=== PATIENT | female | born 1985 | race Two or more races ===

== ENCOUNTER 2024-12-19 00:05 | Emergency (ER) | payer MEDICAID ==
[~2024-12-19] VITALS: Ht 165.1 cm; Wt 78.9 kg
--- NOTE | 2024-12-19 00:25 | ED.PDOC ---
General HPI Comments 39-year-old female came to emergency room due to flank pains. Patient does have history of UTIs, states she has been experiencing right flank pain since yesterday, progressively worsening, nonradiating. Denies any urinary symptoms such as dysuria or hematuria, but complains of urinary urgency. Denies any history of kidney stones. Vital signs were stable on arrival. Chief Complaint: Flank Pain Time Seen by MD: 00:25 Reviewed notes: Nurses Notes Allergies: Coded Allergies: NO KNOWN ALLERGIES (Unverified , 12/19/24) Information Source: Patient Mode of Arrival: Ambulatory Severity: Moderate Inability to void: Mild Timing: Hours Duration: Since onset Has not urinated for: Minutes Prehospital treatment: None Onset: Spontaneous Symptoms: Urgency History of: UTI Location: (R) Flank associated signs and symptoms: Flank Pain, Back Pain, Urgency Past Medical History PAST MEDICAL HISTORY: HTN, UTI'S Surgical History: Denies all surgeries CONTENT ADMINISTRATOR History: Denies all CONTENT ADMINISTRATOR Hx Family History Family History: Reviewed,noncontributory to illness Social History Smoker: Non-Smoker Alcohol: Denies ETOH Use Drugs: Denies Drug Use Lives In: Home Constitutional: denies: chills, diaphoresis, fatigue, fever, malaise, sweats, weakness, others EENTM: denies: blurred vision, double vision, ear bleeding, ear discharge, ear drainage, ear pain, ear ringing, eye pain, eye redness, hearing loss, mouth pain, mouth swelling, nasal discharge, nose bleeding, nose congestion, nose pain, photophobia, tearing, throat pain, throat swelling, voice changes, others Respiratory: denies: cough, hemoptysis, orthopnea, SOB at rest, shortness of breath, SOB with excertion, stridor, wheezing, others Cardiovascular: denies: chest pain, dizzy spells, diaphoresis, Dyspnea on exertion, edema, irregular heart beat, left arm pain, lightheadedness, palpitations, PND, syncope, others Gastrointestinal: denies: abdomen distended, abdominal pain, blood streaked bowels, constipated, diarrhea, dysphagia, difficulty swallowing, hematemesis, me rochelle, nausea, poor appetite, poor fluid intake, rectal bleeding, rectal pain, vomiting, others Genitourinary: reports: flank pain, urgency; denies: abnormal vagina bleeding, burning, dyspareunia, dysuria, frequency, hematuria, incontinence, pain, , vagina discharge, others Neurological: denies: dizziness, fainting, headache, left sided numbness, left sided weakness, numbness, paresthesia, pre-existing deficit, right sided numbness, right sided weakness, seizure, speech problems, tingling, tremors, weakness, others Musculoskeletal: denies: back pain, gout, joint pain, joint swelling, muscle pain, muscle stiffness, neck pain, others Integumetry: denies: bruises, change in color, change in hair/nails, dryness, laceration, lesions, lumps, rash, wounds, others Allergic/Immunocompromised: denies: Difficulty Healing, Frequent Infections, Hives, Itching, others Hematologic/Lymphatic: denies: anemia, blood clots, easy bleeding, easy bruising, swollen glands, others Endocrine: denies: excessive hunger, excessive sweating, excessive thirst, excessive urination, flushing, intolerance to cold, intolerance to heat, unexplained weight gain, unexplained weight loss, others Psychiatric: denies: anxiety, bipolar disorder, depression, hopeless, panic disorder, schizophrenia, sleepless, suicidal, others Physical Exam General Appearance: Moderate Distress (Moderate distress due to flank pain concerns.), Normal HEENT: Normal ENT Inspection, Pharynx Normal, TMs Normal Neck: Full Range of Motion, Non-Tender, Normal, Normal Inspection Respiratory: Chest Non-Tender, Lungs Clear, No Accessory Muscle Use, No Respiratory Distress, Normal Breath Sounds Cardiovascular: No Edema, No JVD, No Murmur, No Gallop, Normal Peripheral Pulses, Regular Rate/Rhythm Breast Exam: Deferred Gastrointestinal: No Pulsatile Mass, Normal Bowel Sounds, Soft, Other (Nonspecific right-sided flank pain extending into the abdomen. No signs of trauma.) Genitalia: Deferred Pelvic: Deferred Rectal: Deferred Extremities: No calf tenderness, Normal capillary refill, Normal inspection, Normal range of motion, Non-tender, No pedal edema Musculoskeletal : Apperance: Normal Neurologic: Alert, No Motor Deficits, Normal Affect, Normal Mood, No Sensory Deficits Cerebellar Function: Normal Reflexes: Normal Skin: Dry, Normal Color, Warm Lymphatic: No Adenopathy Was a procedure done? Was a procedure done?: No Differential Diagnosis Kidney stone (Female): Musculoskeletal pain, Ovarian torsion, Pancreatitis, Pyelonephritis, Renal failure, Strain, Urinary obstruction, Urolithiasis Urinary Problem (Female): Pyelonephritis, Urinary retention, Urolithiasis, UTI X-Ray, Labs, Meds, VS Vital Signs Date Time Temp Pulse Resp B/P (MAP) Pulse Ox O2 Delivery O2 Flow Rate FiO2 12/19/24 01:14 90 16 117/81 (93) 98 12/19/24 01:14 90 16 98 Room Air* 0 21 12/19/24 00:12 99.3 95 20 141/84 (103) 97 Lab Test 12/19/24 00:18 Range/Units Urine Color Light-yellow Yellow Urine Clarity Clear Clear Urine pH 6.5 5.0-9.0 Urine Specific [place] 1.013 1.001-1.035 Urine Protein Negative Negative Urine Ketones Negative Negative Urine Blood Negative Negative /uL Urine Nitrite Negative Negative Urine Bilirubin Negative Negative Urine Urobilinogen Normal Negative mg/dL Urine Leukocyte Esterase Negative Negative /uL Urine RBC 2 0 - 4 /hpf Urine Microscopic WBC < 1 0-5 /HPF Urine Squamous Epithelial Cells Few <5 /hpf Urine Bacteria None seen None Seen /hpf Urine Glucose Normal Normal mg/dL Current Medications Medications (Trade) Dose Ordered Sig/Antonia Route Start Time Stop Time Status Last Admin Acetaminophen/ Hydrocodone Bitart ([place] 5/325MG Tab) 1 tab ONCE ONCE PO 12/19/24 00:30 12/19/24 00:31 DC 12/19/24 01:18 X-Ray, Labs, Meds, VS Comment Patient had good relief of symptoms status post medication dispensed. All studies performed the ED were evaluated by me personally. Urinalysis was unremarkable for any UTI, but imaging studies confirmed a left lower lobe pneumo elias. Patient was given her 1st dose of antibiotics and has been advised to utilize antibiotics as directed until completion as well as additional medication as needed. Good hydration and healthy nutrition throughout illness event. Time of 1ST Reevaluation: 02:02 Reevaluation 1ST: Improved Consultation: PCP Patient Education/Counseling: Diagnosis, Treatment Family Education/Counseling: Diagnosis, Treatment, No Family Present Departure 1 Departure Time of Disposition: 02:02 Impression: Primary Impression: Pneumonia Disposition: 01 HOME / SELF CARE / HOMELESS Condition: Stable Additional Instructions: Advised patient utilize antibiotics as directed until completion as well as additional medication as needed for symptomatic relief. Good hydration and healthy nutrition throughout. e-Prescriptions Hydrocodone-Acetaminophen (Hydrocodone Bitartrate/AC 5-325 mg) 1 Tab Tab 1 TAB PO Q6HP PRN, #10 TAB Prov: GREGORY GARDUNO PAC 12/19/24 Ibuprofen Micronized (Ibuprofen) 800 Mg Tab 800 MG PO Q8HP PRN, #20 TAB Prov: GREGORY GARDUNO PAC 12/19/24 Azithromycin (ZITHROMAX TABLET) 250 Mg Tb 250 MG PO DAILY for 4 Days, #4 TAB Prov: GREGORY GARDUNO PAC 12/19/24 Discharged With: Self, Friend Critical Care Note Critical Care Time?: No Stability Stability form required: No Heart Score Heart Score: Heart Score Response (Comments) Value History N/A 0 EKG N/A 0 Age N/A 0 Risk Factors N/A 0 Troponin N/A 0 Total 0 I personally scribed for GREGORY GARDUNO PAC ([email or web address]) on 12/19/24 at 00:25. Electronically submitted by Zaid Ivory ([email or web address]). GREGORY GARDUNO PAC Dec 19, 2024 00:25
[2024-12-19 00:26] LABS: Urine Bacteria None Seen /hpf (None Seen)
[2024-12-19 00:30] LABS: Urine Blood Negative /uL (Negative); Urine Clarity Clear (Clear); Urine Color Light-Yellow (Yellow); Urine Protein, UAD Negative (Negative); Urine Specific Gravity 1.013 (1.001-1.035); Urine Squamous Epithelial Cell FEW /hpf (<5); Urine Urobilinogen Normal (Negative); Urine WBC < 1 /HPF (0-5); Urine pH 6.5 (5.0-9.0)
[2024-12-19 01:14] VITALS: PULSE 90; RESP 16; O2SAT 98
[2024-12-19] MEDS: KETOROLAC TROMETH 60MG/2ML VIAL IM ONE (01:18)
[2024-12-19] MEDS: HYDROcodone-ACET 5/325MG TAB PO ONE (01:18)
[2024-12-19] MEDS: ONDANSETRON ODT 4 MG TAB PO ONE (01:18)
--- NOTE | 2024-12-19 01:48 | DVH ---
Exam: CT CT AB PEL WO CON-NO ORAL OR IV History: Right flank pain Comparison Study: None available at time of dictation. Technique: Multidetector spiral CT of the abdomen was performed from lung bases to pubic symphysis. Imaging was performed without IV contrast. Axial, coronal and sagittal multiplanar reformats were ob tained from the axial data set by the technologist. Radiation Dose : 1. Abdomen/Pelvis: CTDIvol 12 mGy, DLP 745 mGy*cm. Findings: Evaluation of solid organs is limited due to lack of intravenous contrast use. Lung Bases: Left posterior lower lobe consolidation Liver: The liver is normal in size. Subcentimeter hypodensity in the posterior right hepatic lobe Gallbladder and Biliary Tree: Unremarkable Spleen: Unremarkable Pancreas: The pancreas is grossly normal in appearance. Adrenal Glands: Unremarkable Kidneys: Kidneys are grossly normal without calculi or hydronephrosis. Bladder: Grossly unremarkable for degree of distention. Bowel: The stomach is grossly normal in appearance. [id number] fecal retention throughout the c olon. The appendix is not visualized; however, no secondary findings of acute appendicitis identifie d. Ascites: Absent Lymphadenopathy: No mesenteric, retroperitoneal or periportal lymphadenopathy. Abdominal Wall and Mesentery: Unremarkable. Vasculature: The visualized abdominal aorta is normal in size and caliber. Evaluation of abdominal a nd pelvic vessels is limited due to lack of intravenous contrast. Pelvic Organs: Unremarkable Musculoskeletal: No aggressive focal bony lesions, acute fractures or dislocation. IMPRESSION: Left lower lobe consolidation which may represent pneumonia and less likely atelectasis. No hydroneph rosis or nephrolithiasis END IMPRESSION:
[2024-12-19] MEDS ORDERED: AZIT-185 PO (02:04)
[2024-12-19] MEDS ORDERED: IBUP-1455 PO (02:04)
[2024-12-19] MEDS ORDERED: HYDR-4902 PO (02:05)
[2024-12-19] MEDS: AZITHROMYCIN 250 MG TAB PO ONE (05:08)
[2024-12-19 05:12] VITALS: BP 121/77; PULSE 74; RESP 16; TEMP 98.1; O2SAT 98
== END 2024-12-19 05:15 | disposition home or self-care (01) ==
LOC: ER 00:05
DX: J18.9 Pneumonia, unspecified organism (principal); I10 Essential (primary) hypertension; R10.9 Unspecified abdominal pain; R39.15 Urgency of urination
CPT/HCPCS: 74176; 81001